=== PATIENT | male | born 1945 | race Caucasian/White ===

== ENCOUNTER 2022-06-20 18:45 | Inpatient (IN) | payer OTHER ==
[~2022-06-20] VITALS: Ht 167.6 cm; Wt 81.6 kg
[2022-06-20 12:45] VITALS: BP 134/56
[~2022-06-20 18:45] MED LIST: ALEN70TA3 PO; ASPI-1169 PO; ATOR20TA PO; ERGO500014 PO; HYDR-3974 PO; INSU100C10 SQ; LEVO137T24 PO; LISI10TA29 PO; METO50TA16 PO; TAMS-12 PO
--- NOTE | 2022-06-20 19:10 | NUR ---
[id number] FROM HOME FROM WORSENING GENERALIZED WEAKNESS X 4 DAYS PT NOT ABLE TO AMBULATE TODAY. PLACED ON BED, AAOX4, BREATHING EVEN AND UNLABORED SATURATING AT 96%RA.
--- NOTE | 2022-06-20 19:50 | NUR ---
SHOWER ENCLOSURE INSTALLER AT BEDSIDE
--- NOTE | 2022-06-20 20:00 | NUR ---
SWAB FRO COVID19 AND RAPID INFLUENZA SENT TO LAB
[2022-06-20 20:23] LABS: BASOPHILS % (AUTO) 0.2 % (0.0-2.0); HEMATOCRIT 32 % (39-51); LYMPHOCYTES # (AUTO) 0.3 K/uL (0.8-4.8); LYMPHOCYTES % (AUTO) 4.6 % (20.0-44.0); MEAN CORPUSCULAR HGB CONC 34 g/dl (31.0-36.0); MEAN CORPUSCULAR VOLUME 91 fL (80-96); MONOCYTES # (AUTO) 0.6 K/uL (0.1-1.30); MONOCYTES % (AUTO) 8.8 % (2.0-12.0); NEUTROPHILS # (AUTO) 6.3 K/uL (1.8-8.9); NEUTROPHILS % (AUTO) 86.4 % (43.0-81.0); PLATELET COUNT (AUTO) 158 K/uL (150-450); RED BLOOD CELL COUNT(AUTO) 3.52 MIL/uL (4.5-6.0); WHITE BLOOD COUNT (AUTO) 7.3 K/uL (4.3-11.0)
[2022-06-20] MEDS ORDERED: LIDOCAINE 2% JEL UROJET 10 ML MM ONE ×2 (20:42→22:20)
[2022-06-20 20:49] LABS: MAGNESIUM 1.9 mg/dL (1.8-2.4)
[2022-06-20 20:51] LABS: CALCIUM, SERUM 8.8 mg/dL (8.5-10.1); CARBON DIOXIDE 28 mmol/L (21-32); CHLORIDE 95 mmol/L (98-107); CREATININE 2.2 mg/dL (0.6-1.3); GLUCOSE 177 mg/dL (74-106); SODIUM SERUM 133 mmol/L (136-145); UREA NITROGEN, BLOOD 31 mg/dL (7-18)
--- NOTE | 2022-06-20 20:56 | NUR ---
URINE COLLECTED AND SENT TO LAB
[2022-06-20 21:03] LABS: ALANINE AMINOTRANSFERASE 9 U/L (12-78); ALBUMIN 3.4 g/dL (3.4-5.0); ALKALINE PHOSPHATASE 76 U/L (46-116); ASPARTATE AMINOTRANSFERASE 25 U/L (15-37); BILIRUBIN,DIRECT 0.3 mg/dL (0.0-0.2); BILIRUBIN,TOTAL 0.9 mg/dL (0.2-1.0); TOTAL PROTEIN, SERUM 7.2 g/dL (6.4-8.2)
[2022-06-20] MEDS ORDERED: FUROSEMIDE 20 MG/2 ML VIAL IV ONE (22:00)
[2022-06-20 22:23] LABS: BILIRUBIN,URINE NEGATIVE (NEGATIVE); COLOR,URINE YELLOW (YELLOW); LEUKOCYTE ESTERASE ,URINE 1+ (NEGATIVE); NITRITE, URINE NEGATIVE (NEGATIVE); PH,URINE 5.5 (5.0-8.0); PROTEIN,URINE TRACE mg/dl (NEGATIVE); UGLUCOSE NEGATIVE (NEGATIVE); UROBILINOGEN,URINE 0.2 EU/dL (0.2)
--- NOTE | 2022-06-20 22:33 | NUR ---
HDEZ CATHETER PLACED
[2022-06-20 22:42] LABS: BACTERIA,URINE 3+ /HPF (None Seen); RBC,URINE 21-50 /HPF (0-2); SQUAMOUS EPITHELIAL CELL,UR 0-2 /HPF (None Seen)
[2022-06-21] MEDS ORDERED: ACETAMINOPHEN 325 MG TABLET PO PRN
[2022-06-21] MEDS ORDERED: IV NS 0.9% 1,000 ML IV PRN ×2
[2022-06-21] MEDS ORDERED: Z GUARD REMEDY 4 OZ OINT TP PRN
[2022-06-21] MEDS ORDERED: MAG HYDROX/AL HYDROX/SIMETH 30 ML UDC PO PRN
[2022-06-21] MEDS ORDERED: ONDANSETRON HCL/PF 4 MG/2 ML VIAL IVP PRN
[2022-06-21] MEDS ORDERED: MAGNESIUM HYDROXIDE 30 ML UDC PO PRN
[2022-06-21] MEDS ORDERED: DEXTROSE 50%-WATER 50 ML DISP.SYRIN IV PRN
[2022-06-21] MEDS ORDERED: INSULIN REGULAR, HUMAN 100 UNIT/ML 3 ML VIAL SQ PRN
--- NOTE | 2022-06-21 00:04 | NUR ---
REPORT GIVEN TO TOMMY
--- NOTE | 2022-06-21 00:49 | NUR ---
TRANSFERRRED PATIENT TO [facility]
[2022-06-21] MEDS ORDERED: MEROPENEM 500 MG in IV NS 0.9% 50 ML IV ONE (01:30)
--- NOTE | 2022-06-21 01:35 | NUR ---
MS PHYSICAL PLANT MANAGER NOTE ADMITTED THIS PATIENT FROM ER VIA [facility] WITH DIAGNOSIS OF RECURRENT UTI AND ACUTE KIDNEY INJURY. PATIENT IS AWAKE, ALERT AND ORIENTED X 4. ON ROOM AIR; TOLERATING WELL. BREATHING EVEN AND NONLABORED. NOT IN ANY FORM OF RESPIRATORY OR CARDIAC DISTRESS. DENIES ANY PAIN OR DISCOMFORT AT THIS TIME. WITH IV ACCESS ON LEFT ANTECUBITAL 20G; PATENT, INTACT AND SALINE LOCKED. WITH HDEZ CATHETER IN PLACE DRAINING BY GRAVITY TO YELLOW URINE OUTPUT. SKIN AND BODY ASSESSMENT DONE; INTACT. WITH DEXCOM ON RIGHT THIGH. ORIENTED TO STAFF, ROOM AND UNIT. INVENTORY OF PERSONAL BELONGINGS DONE AND FORM SIGNED. SAFETY PRECAUTIONS IMPLEMENTED: CALL LIGHT AND TABLE WITHIN REACH, SIDE RAILS UP X 2, BED IN LOWEST LOCKED POSITION. WILL CONTINUE TO MONITOR.
[2022-06-21] MEDS ORDERED: MEROPENEM 500 MG VIAL IV ONE (02:50)
[2022-06-21 05:59] LABS: BASOPHILS % (AUTO) 0.3 % (0.0-2.0); EOSINOPHILS % (AUTO) 0.2 % (0.0-6.0); HEMATOCRIT 32 % (39-51); HEMOGLOBIN 10.7 g/dL (13.5-17.5); LYMPHOCYTES # (AUTO) 0.7 K/uL (0.8-4.8); LYMPHOCYTES % (AUTO) 13.2 % (20.0-44.0); MEAN CORPUSCULAR HGB CONC 34 g/dl (31.0-36.0); MEAN CORPUSCULAR VOLUME 92 fL (80-96); MONOCYTES # (AUTO) 0.7 K/uL (0.1-1.30); MONOCYTES % (AUTO) 12.5 % (2.0-12.0); NEUTROPHILS # (AUTO) 4.2 K/uL (1.8-8.9); NEUTROPHILS % (AUTO) 73.8 % (43.0-81.0); PLATELET COUNT (AUTO) 156 K/uL (150-450); RED BLOOD CELL COUNT(AUTO) 3.47 MIL/uL (4.5-6.0); WHITE BLOOD COUNT (AUTO) 5.6 K/uL (4.3-11.0)
[2022-06-21] MEDS: BLOOD SUGAR DIAGNOSTIC 1 EACH STRIP IN SCH ×4 (06:08→21:32)
[2022-06-21 06:23] LABS: CALCIUM, SERUM 8.6 mg/dL (8.5-10.1); CARBON DIOXIDE 29 mmol/L (21-32); CHLORIDE 96 mmol/L (98-107); CREATININE 2.2 mg/dL (0.6-1.3); GLUCOSE 142 mg/dL (74-106); MAGNESIUM 1.9 mg/dL (1.8-2.4); PHOSPHORUS 4.5 mg/dL (2.5-4.9); POTASSIUM 3.6 mmol/L (3.5-5.1); SODIUM SERUM 135 mmol/L (136-145); UREA NITROGEN, BLOOD 33 mg/dL (7-18)
--- NOTE | 2022-06-21 06:30 | NUR ---
RN NOTE PATIENT BLOOD GLUCOSE - 150 MG/DL. PATIENT REFUSED TO RECEIVE INSULIN COVERAGE. PER PATIENT HE HAS INSULIN PUMP THAT AUTOMATICALLY INJECTS INSULIN DEPENDING ON HIS BLOOD SUGAR.
--- NOTE | 2022-06-21 06:45 | NUR ---
MS RN CLOSING NOTE PATIENT IN BED; AWAKE, A/O X 4. STABLE ON ROOM AIR. BREATHING EVEN AND NONLABORED. NOT IN ANY FORM OF RESPIRATORY OR CARDIAC DISTRESS. DENIES ANY PAIN OR DISCOMFORT AT THIS TIME. WITH IV ACCESS ON LEFT ANTECUBITAL 20G; PATENT AND INTACT INFUSING WITH NS 1L RUNNING AT 30 ML/HR; FLUSHES WELL. WITH HDEZ CATHETER IN PLACE DRAINING BY GRAVITY TO YELLOW URINE OUTPUT. SAFETY PRECAUTIONS MAINTAINED: CALL LIGHT AND TABLE WITHIN REACH, SIDE RAILS UP X 2, BED IN LOWEST LOCKED POSITION. ENDORSED TO MORNING SHIFT FOR CHOCO.
[2022-06-21] MEDS ORDERED: LEVOTHYROXINE SODIUM 137 MCG TABLET PO SCH (07:00)
[2022-06-21 07:22] LABS: THYROID STIMULATING HORMONE 3.694 uIU/mL (0.358-3.74)
--- NOTE | 2022-06-21 07:30 | NUR ---
MS RN OPENING NOTE RECEIVED PT IN BED; AWAKE, A/O X 4. STABLE ON ROOM AIR. BREATHING EVEN AND NONLABORED. NOT IN ANY FORM OF RESPIRATORY OR CARDIAC DISTRESS. DENIES ANY PAIN OR DISCOMFORT AT THIS TIME. WITH IV ACCESS ON LEFT ANTECUBITAL 20G; PATENT AND INTACT INFUSING WITH NS 1L RUNNING AT 30 ML/HR; FLUSHES WELL. WITH HDEZ CATHETER IN PLACE DRAINING BY GRAVITY TO YELLOW URINE OUTPUT. SAFETY PRECAUTIONS MAINTAINED: CALL LIGHT AND TABLE WITHIN REACH, SIDE RAILS UP X 2, BED IN LOWEST LOCKED POSITION. WILL CONTINUE TO MONITOR
[2022-06-21] MEDS: PANTOPRAZOLE 40 MG TABLET.DR PO SCH (07:53)
[2022-06-21 08:39] VITALS: BP 119/52
[2022-06-21] MEDS ORDERED: TRAM50TA PO (08:54)
[2022-06-21] MEDS ORDERED: OXYC-133 PO (08:54)
[2022-06-21] MEDS ORDERED: LISINOPRIL (10MG) 10 MG TABLET PO SCH (09:00)
[2022-06-21] MEDS ORDERED: TAMSULOSIN 0.4 MG CAP.SR.24H PO SCH (09:00)
--- NOTE | 2022-06-21 09:01 | NUR ---
TIPPLE OILER/MED RECON HOME MEDICATION UPDATED, INFORMATION OBTAINED FROM THE PATIENT PHARMACY. MEDICATION VERIFIED BY THE PATIENT, ALSO PATIENT REPORTED DOESN'T TAKE METOPROLOL ANYMORE. PHARMACY MADE AWARE. DR. CHO MADE AWARE.
[2022-06-21] MEDS ORDERED: OMEP40CA21 PO (09:07)
[2022-06-21] MEDS ORDERED: LIDO35.4 TD (09:07)
[2022-06-21] MEDS ORDERED: GABA300C PO (09:07)
[2022-06-21] MEDS ORDERED: TRAZ-182 PO (09:07)
[2022-06-21] MEDS ORDERED: MECL-159 PO (09:07)
[2022-06-21] MEDS ORDERED: FURO20TA4 PO (09:08)
[2022-06-21] MEDS: ASPIRIN 81 MG TAB.CHEW PO SCH (09:32)
[2022-06-21] MEDS: HEPARIN SODIUM, PORCINE 5000 UNITS/1 ML VIAL SQ SCH ×2 (09:34→20:44)
[2022-06-21] MEDS ORDERED: CALCIUM CARBONATE 500 MG TAB.CHEW PO PRN (11:00)
--- NOTE | 2022-06-21 12:15 | NUR ---
Pt refused insulin, verbalizes "I'll adjust my machine" referring to Dexcom, a self-infused insulin attached to self. BS reading of 194 at 1212.
[2022-06-21 12:39] LABS: THYROID STIMULATING HORMONE 3.8 uIU/mL (0.358-3.74)
[2022-06-21] MEDS ORDERED: MEROPENEM 500 MG in IV NS 0.9% 50 ML IV SCH (13:00)
[2022-06-21] MEDS: HYDROCODONE/APAP 5/325MG TABLET PO PRN ×3 (15:49→21:25)
[2022-06-21] MEDS ORDERED: LIDOCAINE 5% OINT 35.44 GM TUBE TP PRN (16:00)
[2022-06-21 16:31] VITALS: BP 103/58
--- NOTE | 2022-06-21 17:09 | NUR ---
pt refused insulin. pls see previous notes
--- NOTE | 2022-06-21 19:30 | NUR ---
MS RN NOTES RECEIVED ON BED A/O X4,SLEEPING,AROUSABLE TO VERBAL STIMULI.PATIENT DO SELF CATH TO EMPTY BLADDER REPORTED.WITH KNOWN HX OF NEUROGENIC BLADDER.IVF NS AT 30ML/HR RATE IN PROGRESS,INFUSING ON LEFT AC VIA IV PUMP,SITE PATENT.AMBULATE WITH HIS OWN WALKER.WILL CONTINUE TO MONITOR STATUS.CALL LIGHT IN REACH,NEEDS ANTICIPATED.
--- NOTE | 2022-06-21 19:45 | NUR ---
MS RN CLOSING NOTE PT IN BED; AWAKE, A/O X 4. STABLE ON ROOM AIR. BREATHING EVEN AND NONLABORED. NOT IN ANY FORM OF RESPIRATORY OR CARDIAC DISTRESS. DENIES ANY PAIN OR DISCOMFORT AT THIS TIME. WITH IV ACCESS ON LEFT ANTECUBITAL 20G; PATENT AND INTACT INFUSING WITH NS 1L RUNNING AT 30 ML/HR; FLUSHES WELL. WITH HDEZ CATHETER IN PLACE DRAINING BY GRAVITY TO YELLOW URINE OUTPUT. SAFETY PRECAUTIONS MAINTAINED: CALL LIGHT AND TABLE WITHIN REACH, SIDE RAILS UP X 2, BED IN LOWEST LOCKED POSITION. ENDORSED TO OPEN HEARTH HELPER FOR CHOCO.
[2022-06-21 20:00] VITALS: BP 98/56
[2022-06-21] MEDS: MEROPENEM 1 G in IV NS 0.9% 100 ML IV SCH (20:42)
--- NOTE | 2022-06-21 21:25 | NUR ---
MS RN NOTES C/O PAIN ON THE RIGHT FOOT,NORCO 5/325MG,1 TAB PO GIVEN FOR PAIN 5/10 ON PAIN SCALE.WILL MONITOR FOR RELIEF.
--- NOTE | 2022-06-21 21:30 | NUR ---
MS RN NOTES ACCU-CHECK BLOOD SUGAR CHECK 152,2UNITS COVERAGE HELD,PATIENT HAS INSULIN PUMP ON ABDOMEN
[2022-06-21] MEDS ORDERED: METOPROLOL TARTRATE 50 MG TABLET PO SCH (22:00)
--- NOTE | 2022-06-22 02:00 | NUR ---
MS RN NOTES SOUND ASLEEP,KEPT WARM AND COMFORTABLE.
--- NOTE | 2022-06-22 06:00 | NUR ---
MS RN NOTES ACCU-CHECK BLOOD SUGAR CHECK 120MG/DL,NO INSULIN COVERAGE.
--- NOTE | 2022-06-22 06:24 | NUR ---
MS RN NOTES MO SIGNIFICANT CHANGE IN STATUS.MORNING CARE RENDERED,ABLE TO REPOSITION SELF,HDEZ DRAINS WELL AND EMPTIED.CALL LIGHT IN REACH,NEEDS ATTENDED.
[2022-06-22 06:31] LABS: BASOPHILS % (AUTO) 0.3 % (0.0-2.0); EOSINOPHILS % (AUTO) 1.6 % (0.0-6.0); HEMATOCRIT 32 % (39-51); HEMOGLOBIN 10.6 g/dL (13.5-17.5); LYMPHOCYTES # (AUTO) 1.1 K/uL (0.8-4.8); LYMPHOCYTES % (AUTO) 21.6 % (20.0-44.0); MEAN CORPUSCULAR HGB CONC 34 g/dl (31.0-36.0); MEAN CORPUSCULAR VOLUME 93 fL (80-96); MONOCYTES # (AUTO) 0.9 K/uL (0.1-1.30); MONOCYTES % (AUTO) 17.6 % (2.0-12.0); NEUTROPHILS % (AUTO) 58.9 % (43.0-81.0); PLATELET COUNT (AUTO) 177 K/uL (150-450); RED BLOOD CELL COUNT(AUTO) 3.37 MIL/uL (4.5-6.0)
[2022-06-22 06:44] LABS: CALCIUM, SERUM 7.9 mg/dL (8.5-10.1); CARBON DIOXIDE 26 mmol/L (21-32); CHLORIDE 99 mmol/L (98-107); CREATININE 3.3 mg/dL (0.6-1.3); GLUCOSE 135 mg/dL (74-106); POTASSIUM 3.4 mmol/L (3.5-5.1); SODIUM SERUM 136 mmol/L (136-145); UREA NITROGEN, BLOOD 50 mg/dL (7-18)
[2022-06-22] MEDS ORDERED: LEVOTHYROXINE SODIUM 50 MCG TABLET PO SCH (07:00)
[2022-06-22] MEDS: PANTOPRAZOLE 40 MG TABLET.DR PO SCH (07:54)
[2022-06-22 08:00] VITALS: BP 116/58
[2022-06-22] MEDS: BLOOD SUGAR DIAGNOSTIC 1 EACH STRIP IN SCH ×2 (08:14→12:08)
[2022-06-22] MEDS ORDERED: ATORVASTATIN 10 MG TABLET PO SCH (09:00)
[2022-06-22] MEDS ORDERED: NITR100C6 PO (09:04)
[2022-06-22] MEDS: ASPIRIN 81 MG TAB.CHEW PO SCH (09:55)
[2022-06-22] MEDS: HEPARIN SODIUM, PORCINE 5000 UNITS/1 ML VIAL SQ SCH (09:56)
[2022-06-22] MEDS: MEROPENEM 1 G in IV NS 0.9% 100 ML IV SCH (09:57)
[2022-06-22] MEDS ORDERED: POTASSIUM CHLORIDE 20 MEQ TAB.PRT.SR PO ONE (14:30)
[2022-06-22 15:47] LABS: EOSINOPHILS % (MANUAL) 4 % (0-4); LYMPHOCYTES % (MANUAL) 26 % (16-48); MONOCYTES % (MANUAL) 11 % (0-11.0); NEUTROPHILS % (MANUAL) 59 (42-76)
[2022-06-27] MEDS ORDERED: ERGOCALCIFEROL (VITAMIN D 2) 50,000 UNIT CAPSULE PO SCH (09:00)
[2022-06-27] MEDS ORDERED: ALENDRONATE 70 MG TABLET PO SCH (09:00)
== END 2022-06-22 16:10 | disposition home or self-care (01) | DRG 690 ==
LOC: ER 18:49 → TELE 23:56 → MED 06-21 00:19
PROVIDERS: ADMIT Registered Nurse; ATTEND Internal Medicine
DX: N39.0 Urinary tract infection, site not specified (principal); N17.9 Acute kidney failure, unspecified; N18.30 Chronic kidney disease, stage 3 unspecified; E10.40 Type 1 diabetes mellitus with diabetic neuropathy, unspecified; E03.9 Hypothyroidism, unspecified; E10.22 Type 1 diabetes mellitus with diabetic chronic kidney disease; E78.5 Hyperlipidemia, unspecified; E87.6 Hypokalemia; N40.0 Benign prostatic hyperplasia without lower urinary tract symptoms; Z87.440 Personal history of urinary (tract) infections; Z95.1 Presence of aortocoronary bypass graft; R53.1 Weakness; I25.10 Atherosclerotic heart disease of native coronary artery without angina pectoris; N31.9 Neuromuscular dysfunction of bladder, unspecified; I12.9 Hypertensive chronic kidney disease with stage 1 through stage 4 chronic kidney disease, or unspecified chronic kidney disease; G89.29 Other chronic pain; D64.9 Anemia, unspecified; Z79.4 Long term (current) use of insulin; Z79.82 Long term (current) use of aspirin
CPT/HCPCS: 36415; 71045-TC; 80048-TC; 80061-TC; 80076-TC; 81001; 82550-TC; 82728-TC; 82962-TC; 83540-TC; 83735-TC; 83880; 84100-TC; 84439-TC; 84443-TC; 84484-TC; 85025-TC; 87040-TC; 87081-TC; 87086-TC; 93307-TC; 97116-TC; 97530-TC; C9803; G0378; J1644; J1815; J1940; J2185; J3490; J7030